=== PATIENT | female | born 1990 | race Caucasian/White ===

== ENCOUNTER 2018-07-18 17:10 | Outpatient (CLI) | payer MEDICAID, SELFPAY ==
[2018-07-18 17:16] VITALS: BMI 46.0
[2018-07-18] MEDS: 0.9% NaCl Peripheral Flush Adult/Peds IV ×2 (17:50→18:44)
[2018-07-18 18:07] LABS: 24 Hour Urine Protein 286.4 mg/24HR (<150 MG/24HR); 24HR. UA Prot. Total Volume 1600 mL; 24HR. Urine Creatinine 1.09 g/24 HR (0.70-1.90); Urine Protein (24 Hour) 17.9 mg/dL (<11.9)
[2018-07-18 18:15] LABS: Hematocrit 33.2 % (37-47); Hemoglobin 11.2 g/dl (12.0-15.0); Mean Corp Hgb Conc 33.7 g/gl (32-36); Mean Corpuscular Hgb 30.4 pg (27.0-32.0); Platelet Count 271 K/mm3 (150-450); RBC Distribution Width CV 13.2 % (11.6-14.6); RBC Distribution Width SD 42.3 fl (35.1-43.9); Red Blood Count 3.69 M/mm3 (4.2-5.4); Scan Indicated on CBC? Y/N NO; White Blood Count 11.4 K/mm3 (4.4-11.0)
[2018-07-18 18:17] LABS: International Normalized Ratio 0.9; Prothrombin Time (Protime)PT. 12.2 SECONDS (11.7-14.9)
[2018-07-18 18:18] LABS: Partial Thromboplast Time 31.4 Seconds (24.1-36.2)
[2018-07-18 18:23] LABS: AST(SGOT) 13 U/L (15-37); Alanine Aminotransfer ALT/SGPT 17 U/L (13-56); Creatinine, Serum 0.48 mg/dL (0.55-1.02); EST Glomerular Filtration Rate 165 mL/min (>60); Est Glom Filt Rate - Afr Amer 200 mL/min (>60); Estimated Creatinine Clearance 146.92 ml/min; Uric Acid 3.2 mg/dL (2.6-6.0)
[2018-07-18] MEDS: Lactated Ringers 500 ML 1000 ML IV (18:44)
[2018-07-18 19:04] LABS: Group B Strep DNA By PCR Negative (Negative); Internal Control PASS; Probe Check PASS; Specimen Processing Control PASS
[2018-07-18] MEDS: Acetaminophen 500 MG Tablet 1000 MG PO (20:07)
[2018-07-18] MEDS: Ondansetron 4 MG/2 ML Vial IV (20:09)
--- NOTE | 2018-07-19 08:20 | OB.TRI.NOTE ---
History of Present Illness Date of Service: 07/18/18 Was patient seen by the physician?: No Reason For Visit: R/O PIH Date of Service: 07/18/18 Final CROW: 08/18/18 Final CROW Source: US <20 weeks Gestational age: 35 Weeks and 5 Days History of Present Illness: 28yo @ 35+ wks- seen in office with mildly elevated BP and HARDING, sent for PRE E evaluation. Allergies No Known Allergies Allergy (Verified 07/18/18 17:20) NST - FHR Rate Baby A Baseline: 130 Variability:: Moderate Accelerations:: 15 x 15 Decelerations:: None NST Reactive:: Yes FHR Category:: Category I Uterine Activity:: uterine irritability - occasinal contraction Impression/Plan 28yo @ 35+ weeks - h/o GHTN, Normal BP and PRE E workup today. and maternal well being established 1) Dc home- labs reviewed- PRE E Labs normal 2) IVF given 3) tylenol for HARDING given 4) F/u in office this week
== END 2018-07-18 20:25 | disposition home or self-care (01) ==
LOC: WPOUT 17:15 → WP 17:15
PROVIDERS: Visit Provider Obstetrics & Gynecology
DX: O13.3 Gestational [pregnancy-induced] hypertension without significant proteinuria, third trimester (principal); Z3A.35 35 weeks gestation of pregnancy
CPT/HCPCS: 96361 ×2; 96374; 36415; 59025; 59050; 82565; 82570; 84156; 84450; 84460; 84550; 85027; 85610; 85730; 87081; 87653; 99218; J7120; A4216; G0378; J2405

== ENCOUNTER 2018-07-21 17:15 | Outpatient (CLI) | payer MEDICAID, SELFPAY ==
[2018-07-21 17:28] VITALS: BMI 47.2
[2018-07-21] MEDS: Mag Hydrox/Al Hydrox/Simeth 30 ML UDC PO (18:13)
[2018-07-21] MEDS: proMETHazine 25 MG Tablet 12.5 MG PO (18:13)
[2018-07-21] MEDS: Acetaminophen 500 MG Tablet 1000 MG PO (18:17)
[2018-07-21 18:23] LABS: Hematocrit 31.6 % (37-47); Hemoglobin 10.5 g/dl (12.0-15.0); Mean Corp Hgb Conc 33.2 g/gl (32-36); Mean Corpuscular Hgb 29.7 pg (27.0-32.0); Mean Corpuscular Volume 89.5 fL (81-99); Platelet Count 241 K/mm3 (150-450); RBC Distribution Width CV 13.3 % (11.6-14.6); Red Blood Count 3.53 M/mm3 (4.2-5.4); Scan Indicated on CBC? Y/N NO; White Blood Count 8.1 K/mm3 (4.4-11.0)
[2018-07-21 18:30] LABS: International Normalized Ratio 0.9; Prothrombin Time (Protime)PT. 12.2 SECONDS (11.7-14.9)
[2018-07-21 18:31] LABS: Partial Thromboplast Time 30.2 Seconds (24.1-36.2)
[2018-07-21 18:39] LABS: AST(SGOT) 13 U/L (15-37); Alanine Aminotransfer ALT/SGPT 16 U/L (13-56); Creatinine, Serum 0.64 mg/dL (0.55-1.02); EST Glomerular Filtration Rate 119 mL/min (>60); Est Glom Filt Rate - Afr Amer 144 mL/min (>60); Estimated Creatinine Clearance 110.19 ml/min; Uric Acid 3.5 mg/dL (2.6-6.0)
[2018-07-21 18:40] LABS: Protein, Urine (Random) 27.2 mg/dL (<11.9); Protein:Creat Ratio 229 mg/g CRE (0-200)
--- NOTE | 2018-07-21 18:47 | OB.TRI.NOTE ---
- Problem List (1) Gestational hypertension Status: Acute History of Present Illness Date of Service: 07/21/18 Was patient seen by the physician?: Yes Reason For Visit: R/O PRE ELAMPSIA Date of Service: 07/21/18 Final CROW: 08/18/18 Final CROW Source: US <20 weeks Gestational age: 36 Weeks and 0 Days History of Present Illness: Presented to L&D from office visit today with headache and not feeling well, seen by . BP elevated in 140's and sent for lab work. Upon arrival headache, no sctotoma or right upper quadrant abdominal pain. Allergies No Known Allergies Allergy (Verified 07/21/18 17:29) Review of Systems Constitutional: Reports: Fatigue. Denies: Chills, Fever, Weight Change Eyes: Denies: Blurred vision Cardiovascular: Denies: Chest Pain, Palpitations Respiratory: Denies: Cough, Shortness of breath at rest, Sputum production Gastrointestinal: Reports: Dyspepsia, Nausea. Denies: Abdominal Pain, Vomiting Neurological: Denies: Numbness, Tingling, Focal weakness Psychiatric: Denies: Anxiety, Depression, Homicidal Ideations, Suicidal Ideations Physical Exam General: Alert, Oriented x3, No apparent distress Cardiovascular: Regular rate, Regular Rhythm, No murmurs Lungs: Clear to auscultation, No rhonchi, No wheeze Abdomen: Soft, Non Tender, Gravid Extremities:: No edema Neurological: Deep Tendon Reflexes 2+/4 and Symmetrical. Negative for: Clonus Estimated gestational size: Appropriate for gestational size Presentation: Cephalic NST - FHR Rate Baby A Baseline: 145 Variability:: Moderate Accelerations:: 15 x 15 Decelerations:: None NST Reactive:: Yes FHR Category:: Category I Uterine Activity:: Irregular Impression/Plan A:Gestational HTN Headache P: 1) Evaluated on L&D unit. Will keep for observation. Tylenol, Phenergan, and Mylanta for discomfort. 1 Liter IV fluid. 2) Labs normal 3) 24 hour urine 4) Celestone x 2 5) notified of patient status, labs, BP and plan of care.
[2018-07-21] MEDS: Betamethasone/Betamethasone 30 MG/5 ML Vial 12 MG IM (20:12)
[2018-07-21] MEDS: Lactated Ringers 1,000 ML 999 ML IV (20:12)
[2018-07-21 21:18] LABS: Bacteria 0 SEEN /hpf (None Seen); Mucous, Urine 0 SEEN /hpf (<or=2+); Red Blood Cells-Urine 0 SEEN /hpf (0-5)
[2018-07-21 21:21] LABS: Color, Urine Yellow (Yellow); Glucose, Dipstick Normal (Normal); Ketone-Dipstick 5 mg/dl (Negative); Leukocyte Esterase-Dipstick 25 /ul (Negative); Nitrite-Dipstick Negative (Negative); Occult Blood-Urine Negative /ul (Negative); Protein-Dipstick 30 mg/dl (Negative); Urine Clarity Cloudy (Clear); Urine Urobilinogen 4 mg/dl (Normal)
[2018-07-21 21:27] LABS: Urine Bilirubin Dipstick 1 mg/dL (Negative)
[2018-07-21] MEDS: Ondansetron 4 MG/2 ML Vial IV (21:27)
[2018-07-21 21:29] LABS: Amorphous Sediment 3+ PHOS; Squamous Epithelial Cells - UA 0-5 SEEN /hpf (5-10); White Blood Cells 0-5 SEEN /hpf (0-5)
[2018-07-21] MEDS: 0.9% NaCl Peripheral Flush Adult/Peds IV (21:29)
[2018-07-22] MEDS: Mag Hydrox/Al Hydrox/Simeth 30 ML UDC PO (03:05)
[2018-07-22] MEDS: Acetaminophen 500 MG Tablet 1000 MG PO (06:30)
[2018-07-22] MEDS: 0.9% NaCl Peripheral Flush Adult/Peds IV (07:08)
[2018-07-22] MEDS: Ondansetron 4 MG/2 ML Vial IV (07:08)
[2018-07-22] MEDS: Famotidine 20 MG Tablet PO (07:46)
[2018-07-23 04:07] LABS: 24HR. Urine Creatinine 1.78 g/24 HR (0.70-1.90)
== END 2018-07-22 10:25 | disposition home or self-care (01) ==
LOC: WPOUT 17:21 → WP 17:22
PROVIDERS: Advanced Practice Midwife; Visit Provider Obstetrics & Gynecology
DX: O13.3 Gestational [pregnancy-induced] hypertension without significant proteinuria, third trimester (principal); Z3A.36 36 weeks gestation of pregnancy
CPT/HCPCS: 36415; 59025; 59050; 81001; 82565; 82570; 84156; 84450; 84460; 84550; 85027; 85610; 85730; 87086; 87088; 96372; 99218; J7120; A4216; G0378; J0702; J2405

== ENCOUNTER 2018-07-22 21:20 | Outpatient (CLI) | payer MEDICAID, SELFPAY ==
[2018-07-22 21:37] VITALS: BMI 47.2
[2018-07-22] MEDS: Betamethasone/Betamethasone 30 MG/5 ML Vial 12 MG IM (21:57)
--- NOTE | 2018-07-22 22:55 | NURSING ---
Pt here for second dose of celestone and 24 hr urine dropped off. Celestone given and pt ambulated off unit. Pt advised to keep OB appt for 07/24.
== END 2018-07-22 22:00 | disposition home or self-care (01) ==
LOC: WPOUT 21:24 → WP 21:25
PROVIDERS: Referring Provider Obstetrics & Gynecology; Visit Provider Obstetrics & Gynecology
DX: O36.8130 Decreased fetal movements, third trimester, not applicable or unspecified (principal); Z3A.36 36 weeks gestation of pregnancy
CPT/HCPCS: 96372; 99218; G0378; J0702

== ENCOUNTER 2018-07-23 07:20 | Outpatient (CLI) | payer MEDICAID, SELFPAY ==
[2018-07-23 07:59] VITALS: BMI 48.0
--- NOTE | 2018-07-23 12:38 | OB.TRI.NOTE ---
- Problem List (1) Decreased movement affecting , antepartum Status: Acute History of Present Illness Date of Service: 07/23/18 Was patient seen by the physician?: No Reason For Visit: DECREASE MOVEMENT Date of Service: 07/23/18 Final CROW: 08/18/18 Final CROW Source: US <20 weeks Gestational age: 36 Weeks and 2 Days History of Present Illness: Patient presents to triage reporting decreased movement this morning and felt concerned and did not feel she was able to wait until the [facility] opened. Patient denies vaginal discharge, vaginal bleeding or any other cramping/contractions. Allergies No Known Allergies Allergy (Verified 07/22/18 21:40) Review of Systems Constitutional: Denies: Chills, Fever, Weight Change HEENT: Denies: Head Aches, Sinus Congestion, Sinus Drainage Cardiovascular: Denies: Chest Pain, Palpitations Respiratory: Denies: Cough, Shortness of breath at rest, Sputum production Gastrointestinal: Denies: Abdominal Pain, Nausea, Vomiting Genitourinary: Denies: Dysuria Musculoskeletal: Denies: Joint Pain, Joint Tenderness Skin: Denies: Rash, Wounds Neurological: Denies: Numbness, Tingling, Focal weakness Psychiatric: Denies: Anxiety, Depression, Homicidal Ideations, Suicidal Ideations Hematologic/ Lymphatic: Denies: Easy Bruising, Easy Bleeding NST - FHR Rate Baby A Baseline: 130 Variability:: Moderate Accelerations:: 15 x 15 Decelerations:: None NST Reactive:: Yes, Appropriate for gestational age FHR Category:: Category I Uterine Activity:: No contractions noted on tocometer Impression/Plan A: 28 y/o @ 36+ weeks, Decreased Movement P: 1) NST Reactive - Category I FHT 2) Labor Precautions and [facility] teaching reviewed as part of discharge teaching 3) Patient has scheduled appt tomorrow with [facility] for follow-up Mili PASCAL
== END 2018-07-23 08:15 | disposition home or self-care (01) ==
LOC: WPOUT 07:54 → WP 07:54
PROVIDERS: Referring Provider Advanced Practice Midwife; Visit Provider Advanced Practice Midwife
DX: O36.8130 Decreased fetal movements, third trimester, not applicable or unspecified (principal); Z3A.36 36 weeks gestation of pregnancy
CPT/HCPCS: 59025; 59050; 99218; G0378

== ENCOUNTER 2018-07-28 07:45 | Inpatient (IN) | payer MEDICAID, SELFPAY ==
[2018-07-28 07:56] VITALS: BMI 46.9
[2018-07-28] MEDS: Lactated Ringers 1,000 ML 50 ML IV ×2 (08:10→21:45)
--- NOTE | 2018-07-28 08:27 | PCM.HP.OB ---
- Problem List (1) History of drug use Status: Chronic (2) History of depression Status: Chronic (3) Living in custodial Status: Chronic (4) Late care affecting in third trimester Status: Acute (5) Obesity affecting in third trimester Status: Acute History Date of Admission: 07/28/18 Final CROW: 08/18/18 Final CROW Source: US <20 weeks Gestational age: 37 Weeks and 0 Days History of this : This is a 28 year-old, G [4], P [2], at 37 weeks gestational age present for IOL for GHTN. Patient is dated [facility] and then had a late onset of initiation of care with scant care thereafter. Patient presents with FOB today. Allergies No Known Allergies Allergy (Verified 07/28/18 07:57) Home Medications: Home Medications Vits [Prenatabs FA] 1 tablet PO DAILY 07/23/18 Smoking Status: Current every day smoker Alcohol: None Substance Use Type: Methamphetamine - Hx of Meth Use - denies current use Number of Fetus(es): 1 Heart Tracing: FHT baseline 150 moderate variability, + accels, no decels noted TOCO Analysis: Uterine irritability noted on tocometer History Past Pregnancies: Past Pregnancies Delivery Date Name GA/Weeks Outcome Route Weight Infant Gender Labor Length Anesthesia Delivery Location Provider FOB Labs: O-, Abs Neg, H/H = 10.9/34.4 --> 12.2/36.2, Early 1 hour GTT = 131, Trich = Neg x2 , GC/CT = Neg/Neg x2, Urine Tox = Neg, Syphilis = Neg, Rubella = Immune, HepBsAg = Neg, HIV = Neg, 1 hour GTT = 120, Urine culture = Neg, GBS = Neg Expected Infant Delivery Method: Spontaneous Vaginal Describe any other labor & delivery plans:: Patient desires pain medication but is not interested in epidural Number of Visits: 6 Review of Systems Constitutional: Denies: Chills, Fever, Weight Change HEENT: Denies: Head Aches, Sinus Congestion, Sinus Drainage Cardiovascular: Denies: Chest Pain, Palpitations Respiratory: Denies: Cough, Shortness of breath at rest, Sputum production Gastrointestinal: Denies: Abdominal Pain, Nausea, Vomiting Genitourinary: Denies: Dysuria Musculoskeletal: Denies: Joint Pain, Joint Tenderness Skin: Denies: Rash, Wounds Neurological: Denies: Numbness, Tingling, Focal weakness Psychiatric: Reports: Anxiety. Denies: Depression, Homicidal Ideations, Suicidal Ideations Hematologic/ Lymphatic: Denies: Easy Bruising, Easy Bleeding Physical Exam Vitals: See nursing exam for vital signs - VSS, Afebrile General: Alert, Oriented x3, No apparent distress HEENT: Atraumatic, Normocephalic. Negative for: Thyromegaly, Lymphadenopathy Cardiovascular: Regular rate, Regular Rhythm Lungs: Clear to auscultation Abdomen: Bowel Sounds Present, Non Tender, Non-Distended, Gravid, Appropriate for Gestational Age Neurological: Deep Tendon Reflexes 2+/4 and Symmetrical, Neuro grossly intact RN PROGRESSIVE CARE: Normal external genitalia. Negative for: Vulvar lesions Estimated gestational size: Appropriate for gestational size Presentation: Cephalic Cervix Dilation (cm): 2 - midposition, moderately firm Station: -3 Effacement (%): 50 Assessment/Plan All Active Problems Gestational hypertension (Acute) Decreased movement affecting , antepartum (Acute) Late care affecting in third trimester (Acute) Obesity affecting in third trimester (Acute) This is a 28 year-old, G [4], P [2], at 37 weeks gestational age presenting for IOL for GHTN that was diagnosed at last visit in our office. 1) Dr. Wynn notified of admission and POC for IOL 2) Recommend sumnre catheter induction - risks/benefits and anticipatory teaching re: this method discussed. Patient declines this method. Patient reports fear and concern with sumner catheter placement. Patient consents to Cytotec 25mg PV q 6 hours to assist in cervical ripening. 3) Once cervix is ripe, will plan to start pitocin with plan for AROM once cervix is favorable. 4) All patient questions answered. Will continue to support patient PRN Mili PASCAL
--- NOTE | 2018-07-28 08:33 | HP.PCM_ITS ---
- Problem List (1) History of drug use Status: Chronic (2) History of depression Status: Chronic (3) Living in [place] [facility] Status: Chronic (4) Late care affecting in third trimester Status: Acute (5) Obesity affecting in third trimester Status: Acute History Date of Admission: 07/28/18 Final CROW: 08/18/18 Final CROW Source: US <20 weeks Gestational age: 37 Weeks and 0 Days History of this : This is a 28 year-old, G [4], P [2], at 37 weeks gestational age present for IOL for GHTN. Patient is dated by a [facility] and then had a late onset of initiation of care with scant care thereafter. Patient presents with FOB today. Allergies No Known Allergies Allergy (Verified 07/28/18 07:57) Home Medications: Home Medications Vits [Prenatabs FA] 1 tablet PO DAILY 07/23/18 Smoking Status: Current every day smoker Alcohol: None Substance Use Type: Methamphetamine - Hx of Meth Use - denies current use Number of Fetus(es): 1 Heart Tracing: FHT baseline 150 moderate variability, + accels, no decels noted TOCO Analysis: Uterine irritability noted on tocometer History Past Pregnancies: Past Pregnancies Delivery Date Name GA/Weeks Outcome Route Weight Infant Gender Labor Length Anesthesia Delivery Location Provider FOB Labs: O-, Abs Neg, H/H = 10.9/34.4 --> 12.2/36.2, Early 1 hour GTT = 131, Trich = Neg x2 , GC/CT = Neg/Neg x2, Urine Tox = Neg, Syphilis = Neg, Rubella = Immune, HepBsAg = Neg, HIV = Neg, 1 hour GTT = 120, Urine culture = Neg, GBS = Neg Expected Infant Delivery Method: Spontaneous Vaginal Describe any other labor & delivery plans:: Patient desires pain medication but is not interested in epidural Number of Visits: 6 Review of Systems Constitutional: Denies: Chills, Fever, Weight Change HEENT: Denies: Head Aches, Sinus Congestion, Sinus Drainage Cardiovascular: Denies: Chest Pain, Palpitations Respiratory: Denies: Cough, Shortness of breath at rest, Sputum production Gastrointestinal: Denies: Abdominal Pain, Nausea, Vomiting Genitourinary: Denies: Dysuria Musculoskeletal: Denies: Joint Pain, Joint Tenderness Skin: Denies: Rash, Wounds Neurological: Denies: Numbness, Tingling, Focal weakness Psychiatric: Reports: Anxiety. Denies: Depression, Homicidal Ideations, Suicidal Ideations Hematologic/ Lymphatic: Denies: Easy Bruising, Easy Bleeding Physical Exam Vitals: See nursing exam for vital signs - VSS, Afebrile General: Alert, Oriented x3, No apparent distress HEENT: Atraumatic, Normocephalic. Negative for: Thyromegaly, Lymphadenopathy Cardiovascular: Regular rate, Regular Rhythm Lungs: Clear to auscultation Abdomen: Bowel Sounds Present, Non Tender, Non-Distended, Gravid, Appropriate for Gestational Age Neurological: Deep Tendon Reflexes 2+/4 and Symmetrical, Neuro grossly intact [employer] LIBRARY DIRECTOR: Normal external genitalia. Negative for: Vulvar lesions Estimated gestational size: Appropriate for gestational size Presentation: Cephalic Cervix Dilation (cm): 2 - midposition, moderately firm Station: -3 Effacement (%): 50 Assessment/Plan All Active Problems Gestational hypertension (Acute) Decreased movement affecting , antepartum (Acute) Late care affecting in third trimester (Acute) Obesity affecting in third trimester (Acute) This is a 28 year-old, G [4], P [2], at 37 weeks gestational age presenting for IOL for GHTN that was diagnosed at last visit in our office. 1) Dr. Wynn notified of admission and POC for IOL 2) Recommend sumner catheter induction - risks/benefits and anticipatory teaching re: this method discussed. Patient declines this method. Patient reports fear and concern with sumner catheter placement. Patient consents to Cytotec 25mg PV q 6 hours to assist in cervical ripening. 3) Once cervix is ripe, will plan to start pitocin with plan for AROM once cervix is favorable. 4) All patient questions answered. Will continue to support patient PRN Mili PASCAL
[2018-07-28 08:36] LABS: Hematocrit 33.8 % (37-47); Hemoglobin 11.2 g/dl (12.0-15.0); Mean Corp Hgb Conc 33.1 g/gl (32-36); Mean Corpuscular Hgb 29.6 pg (27.0-32.0); Mean Corpuscular Volume 89.2 fL (81-99); Mean Platelet Vol. 9.9 fl (6.2-12.0); Platelet Count 254 K/mm3 (150-450); RBC Distribution Width CV 13.5 % (11.6-14.6); RBC Distribution Width SD 43.9 fl (35.1-43.9); Red Blood Count 3.79 M/mm3 (4.2-5.4); White Blood Count 9.9 K/mm3 (4.4-11.0)
[2018-07-28 08:37] LABS: Scan Indicated on CBC? Y/N NO
[2018-07-28] MEDS: miSOPROStol 25 MCG TABLET VAGINAL ×2 (09:21→13:06)
[2018-07-28] MEDS: Mag Hydrox/Al Hydrox/Simeth 30 ML UDC PO ×2 (09:22→17:18)
[2018-07-28 09:34] LABS: Amphetamine Urine VISTA NEGATIVE (<1000 ng/mL); Barbiturate Urine VISTA NEGATIVE (< 200 ng/mL); Benzodiazepine Urine VISTA NEGATIVE (< 200 ng/mL); Cocaine Urine VISTA NEGATIVE (< 300 ng/mL); Ecstacy Urine VISTA NEGATIVE (< 500 ng/mL); Methadone Urine VISTA NEGATIVE (< 300 ng/mL); PCP Urine VISTA NEGATIVE (< 25 ng/mL); THC Urine VISTA NEGATIVE (< 50 ng/mL); Vista UDS pH Range 6
--- NOTE | 2018-07-28 15:25 | CASEMGMT ---
Social Work Labor and Delivery Unit Noted social work consult due to maternal mental health and substance use issues. Chart reviewed. Also noted that MOB with late and limited and limited care with a visit at 10 weeks, 20 weeks, and then 31 weeks gestation. Noted that care became more consistent after 31 weeks. From chart review, it appears that patient may have been living in a skilled nursing for at least part of this , as well as possible non custody of at least one of MOB's older children. Plan: Will plan to see patient after delivery for assessment, support, and determination of resources needs. -JEANETTE Dumont, ECOLOGICAL TECHNICAL OFFICER
[2018-07-28] MEDS: Oxytocin 30 units/NS 500 ml 30 UNITS/500 ML IV.SOLN IV (17:24)
--- NOTE | 2018-07-28 19:08 | PCM.PN.OB ---
Patient Problems: Active and Suspected Problems Late care affecting in third trimester (Acute) Obesity affecting in third trimester (Acute) Subjective: Patient sitting up on birthing ball, rocking back and forth at this time. Patient reports increased cramping and sensations of mild rectal and pelvic pressure at this time. Patient reports she is still tolerating labor contractions well. Objective: FHT baseline 145 moderate variability, no decels Ctx Irregular ctx q 2-10 minutes, mildly palpable SVE = 2/70/-3 per RN exam at ~1700 - Physical Exam Weight: 264 lb 15.93 oz Body Mass Index (BMI) 46.9 Intake and Output for Last 24 Hours 07/26/18 07/27/18 07/28/18 23:59 23:59 23:59 Intake Total 700 / 700 Output Total 800 / 800 Balance -100 / -100 Laboratory Tests Past 24 Hrs 07/28/18 07/28/18 07/28/18 08:10 08:10 09:05 WBC 9.9 RBC 3.79 L Hgb 11.2 L Hct 33.8 L MCV 89.2 MCH 29.6 MCHC 33.1 RDW 13.5 RDW Differential 43.9 Plt Count 254 MPV 9.9 Urine Opiates Screen NEGATIVE Urine Methadone Screen NEGATIVE Ur Barbiturates Screen NEGATIVE Ur Phencyclidine Scrn NEGATIVE Ur Amphetamines Screen NEGATIVE U Methamphetamin-MDMA NEGATIVE U Benzodiazepines Scrn NEGATIVE Urine Cocaine Screen NEGATIVE U Cannabinoids Screen NEGATIVE Ur Drug Screen Comment Blood Type O NEGATIVE Antibody Screen NEGATIVE Medical Necessity - Tobacco Use Smoking Status: Current every day smoker Assessment/Plan All Active Problems Gestational hypertension (Acute) Decreased movement affecting , antepartum (Acute) Late care affecting in third trimester (Acute) Obesity affecting in third trimester (Acute) A: 28 y/o @ 37+ weeks, IOL for GHTN, Category I FHT P: 1) Continue pitocin titration at this time per protocol 2) Anticipate SVE with AROM if cervix favorable with next exam 3) Encourage position changes and PO hydration Mili Sethi APRN-JOSÉ MIGUEL
--- NOTE | 2018-07-28 19:48 | PCM.PN.BLA ---
Progress Note Addendum: Patient is ready for SVE at this time - SVE done and patient found to be 4/80/-2 with BBOW. AROM for clear fluid and patient internalized with FSE and IUPC. Patient tolerated procedure well. IV Pitocin continues to infuse for labor augmentation. Will continue to monitor patient closely. Anticipate . Mili PASCAL
[2018-07-28] MEDS: Ondansetron 4 MG/2 ML Vial IV (20:14)
--- NOTE | 2018-07-28 22:27 | PN.OBGYN_ITS ---
Patient Problems: Active and Suspected Problems Late care affecting in third trimester (Acute) Obesity affecting in third trimester (Acute) Subjective: Page received from nursing staff, patient's contractions are intensifying and becoming stronger. Nursing staff has had to keep decreasing IV pitocin me dication as contractions have become closer and stronger. Objective: FHT baseline 140, moderate variability, no decels CTX q 1-3 minutes, palpate moderately strong, MVUs = 150-200 SVE - 5/90/-2 to -3, head asynclitic - Physical Exam General: Alert, Oriented x3, Cooperative HEENT: Atraumatic, Normocephalic Neck: Supple Lungs: Normal air movement Cardiovascular: Regular rate, No murmurs Abdomen: Soft, Non Tender Extremities: No edema, Capillary Refill Less than 3 Seconds Skin: No rashes, No breakdown Musculoskeletal: No Tenderness to Palpation of Joints or Extremities Neurological: Cranial nerves II-XII grossly intact Psych/Mental Status: Normal Affect, Appropriate Weight: 264 lb 15.93 oz Body Mass Index (BMI) 46.9 Intake and Output for Last 24 Hours 07/26/18 07/27/18 07/28/18 23:59 23:59 23:59 Intake Total 700 / 700 Output Total 800 / 800 Balance -100 / -100 Laboratory Tests Past 24 Hrs 07/28/18 07/28/18 07/28/18 08:10 08:10 09:05 WBC 9.9 RBC 3.79 L Hgb 11.2 L Hct 33.8 L MCV 89.2 MCH 29.6 MCHC 33.1 RDW 13.5 RDW Differential 43.9 Plt Count 254 MPV 9.9 Urine Opiates Screen NEGATIVE Urine Methadone Screen NEGATIVE Ur Barbiturates Screen NEGATIVE Ur Phencyclidine Scrn NEGATIVE Ur Amphetamines Screen NEGATIVE U Methamphetamin-MDMA NEGATIVE U Benzodiazepines Scrn NEGATIVE Urine Cocaine Screen NEGATIVE U Cannabinoids Screen NEGATIVE Ur Drug Screen Comment Blood Type O NEGATIVE Antibody Screen NEGATIVE Medical Necessity - Tobacco Use Smoking Status: Current every day smoker Assessment/Plan All Active Problems Gestational hypertension (Acute) Decreased movement affecting , antepartum (Acute) Late care affecting in third trimester (Acute) Obesity affecting in third trimester (Acute) IUP @ 37 weeks with IOL for GHTN, Category I FHT, Pitocin Labor Augmentation P: 1) Encourage position changes, especially use of lunges, side-lying and H+K to help encourage rotation and descent of fetus 2) Anticipate Mili PASCAL
[2018-07-28] MEDS: Oxytocin 30 units/NS 500 ml 30 UNITS/500 ML IV.SOLN 334 UNITS IV (23:45)
[2018-07-29] MEDS: Oxytocin 30 units/NS 500 ml 30 UNITS/500 ML IV.SOLN 167 UNITS IV (00:15)
--- NOTE | 2018-07-29 00:28 | OP.PCM_ITS ---
- Problem List (1) History of drug use Status: Chronic (2) History of depression Status: Chronic (3) Living in skilled nursing Status: Chronic (4) Late care affecting in third trimester Status: Resolved (5) Obesity affecting in third trimester Status: Acute Vaginal Delivery Maternal Presentation: Active Labor Method of Induction: Pitocin, Amniotomy, Cytotec Medical Reason for Induction: Gestational Hypertension Amniotic Membrane Rupture Type: Artificial Amniotic Fluid Description: Clear Final CROW: 08/18/18 Gestational age: 37 Weeks and 1 Days Date of Procedure: 07/29/18 Pre-Operative Diagnosis: IOL @ 37 weeks for GHTN Post-Operative Diagnosis: of Viable Baby Surgery/ Procedure Performed: Spontaneous Vaginal Delivery Type of Anesthesia: None Description of Procedure: Patient was standing up in shower and reported urge to push and bear down. Patient guided back to bed and found to be C/C/+2. Patient pushed well with urge and delivered viable girl baby over intact perineum at 2339. head delivered OA and restituted to SONA and then LOT. Anterior shoulder delivered without difficulty followed by posterior should and body. with spontaneous cry and respirations, dried and stimulated and placed on maternal abdomen. Apgars 9 and 9, infant weight pending. Umbilical cord clamped and cut once it stopped pulsing by FOB. Placenta then delivered spontaneously by Moreno mechanism. Placental triage WNL and with 3VC. FF midline @ umbilicus. EBL = 200cc. Upon inspection of vaginal vault, no lacerations noted. No repair done. Sponge count correct. Vaginal sweep negative. Baby to breast, bonding initiated. Mili Sethi APRN-JOSÉ MIGUEL Presentation: Vertex, SONA Placental Delivery Description: Spontaneous Placenta Disposition: [facility] Cord Vessel Description: 3 Vessels Cord Entanglement: None Estimated Blood Loss: 200 A gender: Female (1 minute): 9 (5 minute): 9 Episiotomy Description: None Laceration: None Medications given after delivery: IV Pitocin Complications: None
--- NOTE | 2018-07-29 00:35 | DCINST_ITS ---
Discharge Diet: No Restrictions Discharge Activity: Return to Normal Activity, May not drive while taking narcotic pain medications., May Shower May resume sexual activity in: 4-6 weeks Additional Activity Instructions:: Nothing in the vagina for 4-6 weeks. You may return to work/school in 6 weeks. Call your doctor if your incision/area has: Continuous Slow Oozing, Sudden Increased Bleeding, Increased Pain/ Swelling, Increased Redness, Foul Smelling Discharge Call your doctor if you observe: Fever of 101 or Higher, Inability to urinate, Inability to have a bowel movement, Using more than one pad per hour Additional Instructions: If you experience any of the following, contact your healthcare provider. * Bleeding that soaks a pad every hour for 2 hours * Fever 100.4 or higher * Unrelieved incision or abdominal pain * Swelling, redness, discharge or bleeding from your incision or episiotomy site * Your incision begins to separate * Problems urinating (including inability to urinate or burning while urinating). * Visual changes * Severe headache * Flu-like symptoms * Pain or redness in one of both of your breasts * Pain, warmth, tenderness or swelling in your legs, especially the calf area * Frequent nausea and vomiting * Symptoms of depression or anxiety If you experience any of the following, call 911 or go to the nearest Emergency Room. * Chest pain * Problems breathing * Seizure activity * Partial or complete paralysis of a body part, slurred speech, weakness or drooping of the face, or a sudden inability to walk or hold your balance Allergies/Adverse Reactions: Allergies No Known Allergies Allergy (Verified 07/28/18 07:57) Medications to take at Discharge Vits [Prenatabs FA ] 1 tablet PO DAILY 07/23/18 Please Follow Up With: Mili Sethi CNM When: Call to make an appointment with your doctor in 2 weeks and 6 weeks. If you had elevated Blood Pressure or 4th degree laceration you will need to be seen in 2 weeks. Primary Care Physician: Care Physician,No Primary [Primary Care Provider] - Test Results: Test results from this visit will be discussed in further detail at your follow- up appointment, if applicable. Proposed Discharge Date: 07/30/18
[2018-07-29] MEDS: Ibuprofen 600 MG Tablet PO ×3 (01:06→13:23)
[2018-07-29 04:04] VITALS: BP 140/66; PULSE 105; RESP 18; TEMP 36.6; O2SAT 96
--- NOTE | 2018-07-29 06:16 | PCM.PN.OB ---
Patient Problems: Active and Suspected Problems Obesity affecting in third trimester (Acute) Subjective: Patient standing at bedside reporting no issues. Patient denies any heavy bleeding, denies pelvic pain or issues with ambulation or urination. Objective: Nipples without cracks or blisters, no erythema noted Abdomen NT x 4 quadrants, FF midline @ umbilicus Negative edema in LE< no calf tenderness to palpation Small rubra lochia - Physical Exam General: Alert, Oriented x3, Cooperative HEENT: Atraumatic, Normocephalic Neck: Supple Lungs: Normal air movement Cardiovascular: Regular rate, No murmurs Abdomen: Soft, Non Tender Extremities: No edema, Capillary Refill Less than 3 Seconds Skin: No rashes, No breakdown Musculoskeletal: No Tenderness to Palpation of Joints or Extremities Neurological: Cranial nerves II-XII grossly intact Psych/Mental Status: Normal Affect, Appropriate Vital Signs Temp Pulse Resp BP Pulse Ox 97.9 F 105 H 18 140/66 H 96 07/29/18 04:04 07/29/18 04:04 07/29/18 04:04 07/29/18 04:04 07/29/18 04:04 Oxygen Delivery Method Room Air Weight: 264 lb 15.93 oz Body Mass Index (BMI) 46.9 Intake and Output for Last 24 Hours 07/27/18 07/28/18 07/29/18 23:59 23:59 23:59 Intake Total 700 / 700 Output Total 800 / 800 Balance -100 / -100 Laboratory Tests Past 24 Hrs 07/28/18 07/28/18 07/28/18 08:10 08:10 09:05 WBC 9.9 RBC 3.79 L Hgb 11.2 L Hct 33.8 L MCV 89.2 MCH 29.6 MCHC 33.1 RDW 13.5 RDW Differential 43.9 Plt Count 254 MPV 9.9 Urine Opiates Screen NEGATIVE Urine Methadone Screen NEGATIVE Ur Barbiturates Screen NEGATIVE Ur Phencyclidine Scrn NEGATIVE Ur Amphetamines Screen NEGATIVE U Methamphetamin-MDMA NEGATIVE U Benzodiazepines Scrn NEGATIVE Urine Cocaine Screen NEGATIVE U Cannabinoids Screen NEGATIVE Ur Drug Screen Comment Blood Type O NEGATIVE Antibody Screen NEGATIVE Screen Baby's Blood Type Baby's JOSE RAFAEL 07/29/18 04:15 WBC RBC Hgb Hct MCV MCH MCHC RDW RDW Differential Plt Count MPV Urine Opiates Screen Urine Methadone Screen Ur Barbiturates Screen Ur Phencyclidine Scrn Ur Amphetamines Screen U Methamphetamin-MDMA U Benzodiazepines Scrn Urine Cocaine Screen U Cannabinoids Screen Ur Drug Screen Comment Blood Type Antibody Screen Screen NEGATIVE Baby's Blood Type O POSITIVE Baby's JOSE RAFAEL NEGATIVE Medical Necessity - Tobacco Use Smoking Status: Current every day smoker Assessment/Plan All Active Problems Gestational hypertension (Acute) Decreased movement affecting , antepartum (Acute) Late care affecting in third trimester (Resolved) Obesity affecting in third trimester (Acute) A: 28 y/o , PPD #1 s/p , Normal Course P: 1) Continue PP orders 2) Lactaction Consultation Mili PASCAL
[2018-07-29 08:00] VITALS: BP 132/66; PULSE 103; RESP 16; TEMP 36.7; O2SAT 97
[2018-07-29 13:25] VITALS: BP 125/79; PULSE 87; RESP 18; TEMP 36.6; O2SAT 97
[2018-07-29 16:00] VITALS: BP 136/84; PULSE 102; RESP 18; TEMP 36.3; O2SAT 97
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
[2018-07-29] MEDS: Acetaminophen 500 MG Tablet 1000 MG PO (18:02)
[2018-07-29 20:30] VITALS: BP 99/64; PULSE 89; RESP 16; TEMP 36.8
[2018-07-30 04:02] VITALS: BP 137/82; PULSE 94; RESP 16; TEMP 36.8
[2018-07-30 10:20] VITALS: BP 139/75; PULSE 105; RESP 18; TEMP 36.4
--- NOTE | 2018-07-30 12:25 | CASEMGMT ---
Social Work Labor and Delivery Unit Reason for visit: review plan for counseling, pediatric follow up, safe plan of care for baby in relation to drug usage, and how MOB is doing right now. Summary: Chart reviewed. Report received from nursing staff. Noted nursing documentation overnight that patient/mother of baby (MOB) refused to let nursing check baby out, nor check MOB, then later the MOB apologized to staff for behaviors. Baby has now been sent to the [facility] for issues related to low blood sugars and jitteriness. Met with MOB in room. MOB reports was irritable with staff last night as MOB had not slept well, was very tired, and had been upset from earlier in the evening when MOB?s mother showed up at about 9pm to visit. MOB reports her mother was to visit earlier in the day, and MOB was irritated by the lateness of the visit. MOB reports then got more upset as when the baby fussed for a moment, MOB?s mom picked the baby up despite MOB telling MOB?s mom not to. MOB reports the baby started crying then and disrupted both MOB and baby from sleeping. MOB report then got irritable with staff when both were trying to rest, and then became stressed out when knew baby had to go to SCN. MOB reports did later apologize to the staff and apologized to her own mother for MOB?s reactions last evening. MOB uncertain about which doctor will have pediatric follow up for baby, but is planning to go to a family doctor?s office. This show card writer explored with MOB behavioral health issues including counseling follow up: Addressed whether MOB has any other mental health diagnosis other than depression or anxiety, such as bipolar disorder. MOB reports that yes, was diagnosed with Bipolar disorder at the age of 20. MOB reports to have mood swings at times. Addressed medication management with MOB. MOB reports can?t remember any medicine, other than Trazadone, helping MOB with mood or anxiety. MOB reported that about a month ago was a [facility] and received a dose of ?anxiety sleeping? medicine that seemed to help MOB for about 2 days after. Addressed with MOB that may be good to find out what that medicine is, as some medicines can impact baby and that it is good for staff to know what baby has been exposed to. Addressed with MOB about other substance use and importance of not breast feeding should MOB go back to using drugs. MOB states no intent to use drugs in the future and reports to understand that should not use drugs and breast feed. MOB reports was hesitant to smoke cigarettes due to breast feeding, but once found out this was okay [id number] to go out and smoke last night (about [id number] in the morning). MOB reports had initially quit smoking during this , then at about 7 months along started again up to a half a pack a day. MOB reports by the time that MOB delivered was up to one pack a day. MOB reports agreement to have social work assist with getting follow up counseling set up for in a week or two. Addressed with MOB that need to talk with MOB about safe plan of care for baby, should MOB for any reason use drugs again in the future. Referenced that as report needs to be made to children services related to reports of substance exposed infant, this show card writer needs to also address safe plan of care. MOB took some time to think and responded that would get a multiple drill operator to watch baby should MOB use drugs again. MOB reports that does not really trust others to watch the baby though. MOB reports intent currently to remain drug free. Assessment: MOB pleasant, cooperative and talkative during social work visit. MOB willing to have referrals made. MOB reports permission for social services manager to arrange follow up with Wilmer Dean at [facility]. MOB also agreeable with social services manager requesting records from [facility] to see what medicine MOB received while in the ED. MOB willing to share feelings regarding stress of baby going to SCN. Alleged father of baby (FOB) sleeping on couch during social work visit. No movement or seeming to be disturbed at all by conversation going on around the FOB. MOB reports that FOB is stressed about baby being in the SCN, so MOB has contacted FOB?s mother for support in encouraging FOB to go into the SCN to see the baby and continue to help. MOB continues to voice interest in having community resource information. MOB voicing love for baby, and that MOB misses the baby while in the SCN. Interventions: MOB signed releases of information to [facility] and to [facility]. Confirmed Fax at [facility] records department (fax [phone]) and faxed request for records. This show card writer had confirmed with technical instructor course developer that may be a good idea to have documented what MOB was prescribed during this . Confirmed Debbie Gomeso?s fax of [phone] and faxed release of information. Verified MOB?s last appointment with counselor Wilmer as 07-10-18 and then arranged follow up for MOB for Saturday08-08-18 at 1400. This show card writer provided MOB with [place] Depression screen. Score is 8 of 30, with 10 or higher being indicative of possible depression present. MOB reports to feel managing okay right now, just feeling a bit stressed with having baby in the SCN. -JEANETTE Dumont, HISTORICAL SOCIETY DIRECTOR
--- NOTE | 2018-07-30 12:37 | CASEMGMT ---
Social Work Labor and Delivery Unit Summary: Called [facility] ([facility]) at [phone]. Spoke with Vinita in the intake department. Referral given due to reports of substance exposed , with reports of last use in the first trimester. MOB informed this literary writer that had gone high to the care center when seeking confirmation of . Let Vinita know that this is last reported use by the MOB. Updated to negative drug screens done, and negative results; pending results for baby. Brief maternal and histories provided. Included risk factors related to maternal mental health, housing instability, and non-custody of older children with children services reportedly just closing a case during this . Let Vinita know of baby?s current location and that unsure of discharge dates. Anticipating case to be screened in for investigation with children services worker contacting MOB at some point soon. Vinita asks to be update if there are any significant changes with baby, or other concerns arise. Note, this literary writer did educate mother of baby (MOB) when meeting with MOB earlier this date, that this literary writer provides the social work to the [facility]. Educated for need to do a social history, and that this literary writer will be using the information gathered with MOB on 07-29-18. MOB voices agreement to go ahead and include the information gathered upon initial meeting. Plan: Continue to follow and assist this family. Will be follow up with MOB for resources and support. -MAXWELL Dumont, BATTERY BUILDER
[2018-07-30] MEDS: Acetaminophen 500 MG Tablet 1000 MG PO (13:41)
[2018-07-30 14:00] VITALS: BP 135/81; PULSE 100; RESP 18; TEMP 36.1
[2018-07-30] MEDS: Etonogestrel 68 MG IMPLANT SQ (16:59)
--- NOTE | 2018-07-30 17:13 | PCM.PN.OB ---
Patient Problems: Active and Suspected Problems Obesity affecting in third trimester (Acute) Nexplanon insertion (Acute) Subjective: Doing well per patient and nursing staff. Voiding and passing flatus. Ambulating and taking PO without difficulty. Denies headache, visual disturbances, chest pain, SOB, leg pain, abdominal pain, increased vaginal bleeding or clots. Baby in special care nursery due to hypoglycemia. Objective: Desires Nexplanon. Reviewed risks, benefits, MOA, bleeding profile, and removal in 3 years. Consent form reviewed and signed. Left handed, requesting placement in right arm. Right upper arm cleansed with betadine. 1% Lidocaine instilled into right upper arm. Nexplanon inserted without difficulty. Steri strips applied. Pressure dressing applied. Reviewed with patient to remove pressure dressing in 24 hours. - Physical Exam General: Alert, Oriented x3, Cooperative, - - Earlier today anxious due to baby feeding schedule and declined Nexplanon at 1145am. Doing better now, returned from [place] ([place] hospital property[facility] HEENT: Atraumatic, Normocephalic Neck: Trachea Midline Lungs: Clear to auscultation, Normal air movement, No rhonchi, No wheeze Cardiovascular: Regular rate, Regular Rhythm, No murmurs Abdomen: Bowel Sounds Present, Soft, - - Fundus firm 2 below U Extremities: No edema Neurological: Deep Tendon Reflexes 2+/4 and Symmetrical, - - clonus negative. Fco's negative. Psych/Mental Status: Normal Affect, Appropriate Vital Signs Temp Pulse Resp BP Pulse Ox 97.6 F L 105 H 18 139/75 H 97 07/30/18 10:20 07/30/18 10:20 07/30/18 10:20 07/30/18 10:20 07/29/18 16:00 Oxygen Delivery Method Room Air Weight: 264 lb 15.93 oz Body Mass Index (BMI) 46.9 Intake and Output for Last 24 Hours 07/28/18 07/29/18 07/30/18 23:59 23:59 23:59 Intake Total 700 / 700 2100 / 2100 Output Total 800 / 800 700 / 700 Balance -100 / -100 1400 / 1400 Medical Necessity - Tobacco Use Smoking Status: Current every day smoker Assessment/Plan All Active Problems Gestational hypertension (Acute) Decreased movement affecting , antepartum (Acute) Late care affecting in third trimester (Resolved) Obesity affecting in third trimester (Acute) Nexplanon insertion (Acute) A: PPD #2 Gestational HTN Nexplanon insertion P: 1) Routine PP orders. BP mildly elevated, recheck prior to hotel status and call with BP check. 2) Discharge instructions given. Follow up in 2-5 days for BP check 3) Follow up in 2 weeks and 6 weeks for PP visit.
--- NOTE | 2018-07-30 18:44 | NURSING ---
late entry- 1630- in patients room but patient not there. signed out at desk. Ramin on floor for discharge assessment and nexplanon placement. Attempted calling patient on number in chart and number SCN has. unable to get in touch with patient.
--- NOTE | 2018-07-30 18:48 | NURSING ---
1700- returned to floor.
[2018-07-30 20:35] VITALS: BP 133/83; PULSE 100; RESP 20; TEMP 36.7; O2SAT 97
[2018-07-30 20:45] VITALS: BP 133/83; PULSE 100; RESP 20; TEMP 36.7; O2SAT 97
--- NOTE | 2018-07-30 22:36 | NURSING ---
2044-discharged to courtesy room status. reviewed rules regarding the stay. questions answered.
--- NOTE | 2018-07-30 22:39 | NURSING ---
2044-called jak antony cnm and made aware of pt blood pressure, ok with discharge.
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
== END 2018-07-30 20:45 | disposition home or self-care (01) | DRG 372 ==
PROVIDERS: Admitting Provider Obstetrics & Gynecology; Referring Provider Obstetrics & Gynecology; Visit Provider Obstetrics & Gynecology
DX: O13.4 Gestational [pregnancy-induced] hypertension without significant proteinuria, complicating childbirth (principal); O99.214 Obesity complicating childbirth; E66.9 Obesity, unspecified; Z37.0 Single live birth; Z59.0 Homelessness; F17.200 Nicotine dependence, unspecified, uncomplicated; O99.334 Smoking (tobacco) complicating childbirth; Z3A.37 37 weeks gestation of pregnancy
CPT/HCPCS: 59025; 59050; 80307; 85027; 85461; 86850; 86900; 90384; 99218; J7120; G0378; J2405; J2790

== ENCOUNTER 2019-09-15 21:07 | Emergency (ER) | payer MEDICAID, SELFPAY ==
[2019-09-15 21:09] VITALS: BP 151/100; PULSE 129; RESP 18; TEMP 36.4; O2SAT 100; BMI 43.9
--- NOTE | 2019-09-15 21:12 | RAD_ITS ---
STUDY: X-RAY - RIGHT FOOT CLINICAL: Female, 29 years old. Pain TECHNIQUE: 3 view(s) of the foot. COMPARISON: None. FINDINGS: There is no evidence of fracture or dislocation. There are no significant degenerative changes. There are no radiodense foreign bodies. RAD/Foot min 3 Views IMPRESSION: No fracture or dislocation. Electronically Signed: Cornelius Person, at 21:36 EST Tel , Service support ,
--- NOTE | 2019-09-15 22:00 | ED.RN ---
PT CALLED TO TAKE BACK TO ED ROOM. NO RESPONSE.
--- NOTE | 2019-09-15 22:03 | ED.RN ---
PT LEFT WITHOUT BEING SEEN.
== END 2019-09-15 22:03 | disposition left against medical advice (07) ==
LOC: ED 22:05
PROVIDERS: Emergency Provider Emergency Medicine
DX: M79.671 Pain in right foot (principal)
CPT/HCPCS: 73630

== ENCOUNTER 2019-09-16 17:17 | Emergency (ER) | payer MEDICAID, SELFPAY ==
[2019-09-15 21:09] VITALS: BMI 43.9
[2019-09-16 17:18] VITALS: BP 147/95; PULSE 133; RESP 15; TEMP 36.4; O2SAT 98; BMI 46.0
[2019-09-16 17:53] LABS: Color, Urine Yellow (Yellow); Glucose, Dipstick Normal (Normal); Ketone-Dipstick Negative (Negative); Leukocyte Esterase-Dipstick 25 /ul (Negative); Nitrite-Dipstick Negative (Negative); Occult Blood-Urine Negative /ul (Negative); Protein-Dipstick Negative (Negative); Urine Bilirubin Dipstick Negative (Negative); Urine Clarity Sl. Cloudy (Clear); Urine Urobilinogen 1 mg/dl (Normal)
[2019-09-16 17:54] LABS: Internal QC Validated? YES +Cl - CLEAR BKGD; Pregnancy, Urine Negative Negative
[2019-09-16 18:00] LABS: Bacteria 1+ /hpf (None Seen); Mucous, Urine 3+ /hpf (<or=2+); Red Blood Cells-Urine 0-5 SEEN /hpf (0-5); Squamous Epithelial Cells - UA 10-25 SEEN /hpf (5-10); White Blood Cells 0-5 SEEN /hpf (0-5)
[2019-09-16] MEDS: Azithromycin 250 MG Tablet 1000 MG PO (18:19)
[2019-09-16] MEDS: metroNIDAZOLE 500 MG Tablet 2000 MG PO (18:19)
[2019-09-16] MEDS: Ceftriaxone 500 MG Vial 250 MG IM (18:29)
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
--- NOTE | 2019-09-16 19:11 | ED.DCSUM_ITS ---
- ER Visit Summary Date of Service: 09/16/19 Chief Complaint: STD exposure History of Present Illness: The patient is a 29 F with an STD exposure. Her boyfriend has symptoms of an STD. She is having some lower abdominal pain but denies discharge or bleeding. She also injured her foot recently and was seen yesterday. She had an x-ray of her foot performed, but she left the ED before the results. Physical Examination: Unremarkable. She has lateral foot tenderness which is diffuse and nonspecific. Test Results: Urinalysis unremarkable. hCG negative. Gonorrhea and Chlamydia testing is pending. Emergency Department Course and Treatment: Patient's x-rays from yesterday were unremarkable. Rest, ice, elevate. [id number] remedies for pain. Patient will be treated for STD coverage with ceftriaxone, azithromycin, and Flagyl. There is nothing to suggest PID. No indication for imaging. Patient was given precautions and outpatient follow-up. sheetmetal worker also saw the patient as she is homeless to try to get her some primary care follow-up and other resources. Treatment Plan: As above Disposition: Discharge Impression: 1. Right foot pain 2. STD exposure This note was generated with LogLogic dictation software. It may contain incorrect words, spelling, and punctuation that were not noted in review of the chart prior to signing ED Disposition - Plan for ED Patient: Referrals: Care Physician,No Primary [Primary Care Provider] -
--- NOTE | 2019-09-16 19:13 | ED.DEP ---
ED Disposition - Plan for ED Patient: Instructions: What Are Sexually Transmitted Diseases (STDs)?, Sprain Foot Prescriptions: Naproxen [Naprosyn] 500 mg PO BID PRN #20 tab Prescription Printed Referrals: Dary Black [NON-STAFF] -
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
[2019-09-16 20:03] LABS: Chlamydia Trachomatis by PCR Negative (Negative); Neisserai gonorrhoeae by PCR Positive (Negative); Probe Check PASS
--- NOTE | 2019-09-16 20:15 | ED.RN ---
attempted to contact patient at this time with test results. Boyfriend answered phone and patient was not there. Boyfriend wanted test results and advised was no legally allowed to speak to him at this time unless I speak to patient before. He is to have patient call back to hospital for results.
--- NOTE | 2019-09-16 20:19 | ED.RN ---
lab called with positive gonorrhoeae results. Spoke with Dr. Loredo patient has been covered with medications. Patient needs to be made aware of test results.
--- NOTE | 2019-09-17 01:46 | ED.RN ---
patient called back and notified of test results.
== END 2019-09-16 19:29 | disposition home or self-care (01) ==
PROVIDERS: Emergency Provider Emergency Medicine
DX: M79.671 Pain in right foot (principal); Z20.2 Contact with and (suspected) exposure to infections with a predominantly sexual mode of transmission; R10.30 Lower abdominal pain, unspecified; S99.921A Unspecified injury of right foot, initial encounter; X58.XXXA Exposure to other specified factors, initial encounter; Y93.9 Activity, unspecified; Y92.9 Unspecified place or not applicable; Z72.0 Tobacco use
CPT/HCPCS: 81001; 81025; 87491; 87591; 96372; 99284

== ENCOUNTER 2025-07-29 19:12 | Emergency (ER) | payer MEDICAID, SELFPAY ==
[2025-07-29 19:13] VITALS: BP 164/101; PULSE 102; RESP 18; TEMP 36.9; O2SAT 98; BMI 49.6
--- NOTE | 2025-07-29 19:47 | EKG12_ITS ---
Test Reason : SUBSTANCE ABUSE Blood Pressure : */* mmHG Vent. Rate : 86 BPM Atrial Rate : 86 BPM P-R Int : 168 ms QRS Dur : 78 ms QT Int : 360 ms P-R-T Axes : 66 50 30 degrees QTcB Int : 430 ms Normal sinus rhythm Normal ECG Confirmed by PAMELA DUVALL, MILLICENT ([id number]), newspaper or periodical editor DESTINEY BLACK ([id number]) on 08/02/2025 6:19:23 AM Referred By: Confirmed By: MILLICENT SANTIAGO MD
--- NOTE | 2025-07-29 20:08 | EX.ED.SAOD ---
HPI History of Present Illness Chief Complaint: Substance Abuse Detail of Chief Complaint: Detox from crack cocaine and methamphetamine Informant: patient Onset/Context/Timing Onset: Month(s) (Patient states she has been using for approximately 8 months) Context: Sudden Onset Timing: Continuous Quality: Smoked crack prior to presentation. Current Severity: Moderate Maximum Severity: Severe Worsened by: Crack cocaine use Relieved by: Nothing Associated Symptoms Associated Symptoms: Positive for tremor, palpatations, change in mental status (Feels things are racing and out of body experience) and unknown; Negative for vomiting*, diarrhea*, fever*, rash*, seizure, trauma, sex for drugs*, suicidal ideation or homicidal ideation Narrative Narrative: Patient is a 35-year-old female. She has history of drug use and depression. She states she is sexually active. She has not had a menses in greater than 2 months. She states her IUD was post be removed several years ago. She complains of headache, palpitations,, things racing, shortness of breath and feeling anxious. Headache did not start abruptly. It is primarily bifrontal. There is no complaint of double vision, blurred vision or loss of vision. Denies ringing ears decreased hearing. She has trouble with speech or swallowing. She She does endorse palpitations. Denies chest pressure, tightness, heaviness or pleuritic pain. She denies any type of chest pain. She does report mild shortness of breath. She denies cough, sputum production or wheezing. She feels that her abdomen is bloated and full. She is concerned he may be . She denies dysuria, frequency, urgency or hematuria. She denies paresthesia, anesthesia or weakness in her upper or lower extremity. She denies problems with balance. Patient states her mother drove her to the emergency room. Prior similar symptoms: Yes Recent Illness/Hospitalization: No PFSH PFSH Medical History no medical history Home Medications ?Medication ?Instructions ?Recorded ?Last Taken ?Type naproxen 500 mg tablet 500 mg PO BID PRN #20 tabs 09/16/19 Unknown Rx cephalexin 500 mg capsule 500 mg PO Q6 #28 CAPSULES 07/29/25 Unknown Rx Allergy/AdvReac Type Severity Reaction Status Date / Time No Known Allergies Allergy Verified 07/29/25 19:15 Social History Smoking Status: Former smoker ROS ROS ED Constitutional Constitutional ED: Reports sweats; Denies chills, fever(s), subjective or weight loss Eyes Eyes: Denies blurry vision, change in vision or diplopia ENT ENT ED: Denies ear pain, rhinorrhea or sore throat Cardiovascular Cardiovascular: Reports palpitations and racing heartbeat; Denies chest pain, orthopnea or paroxysmal nocturnal dyspnea Respiratory/Chest Respiratory/Chest: Reports cough and dyspnea; Denies dyspnea on exertion, orthopnea, paroxysmal nocturnal dyspnea or sputum Gastrointestinal Gastrointestinal: Reports abdominal pain; Denies constipation, diarrhea, melena, nausea or vomiting Genitourinary Genitourinary ED: Denies dysuria or urinary frequency Musculoskeletal Musculoskeletal: Denies arthralgias, back pain or myalgias Integumentary Reports rash and other Details: Rash dorsum of left foot for months. ; Denies abscess or Abrasions Neurologic Neurologic: Reports headache(s); Denies paresthesias or weakness Psychiatric Psychiatric: Reports anxiety; Denies suicidal ideation Endocrine Endocrinology: Denies cold intolerance or heat intolerance Hematologic/Lymphatic Hematologic/Lymphatic: Denies easy bleeding or easy bruising EXAM Physical Exam Const Vital Signs: 07/29/25 19:13 07/29/25 20:12 07/29/25 20:27 Temperature 98.4 F Temperature Source Temporal Pulse Rate 102 H 86 87 Respiratory Rate 18 16 17 Blood Pressure 164/101 H 145/97 H 145/97 H Blood Pressure Mean 122 113 113 Pulse Ox 98 99 97 Oxygen Delivery Method Room Air Room Air Room Air 07/29/25 21:00 07/29/25 22:00 07/29/25 23:00 Temperature Temperature Source Pulse Rate 94 83 88 Respiratory Rate 15 14 16 Blood Pressure 143/83 H 121/98 H 120/65 Blood Pressure Mean 103 105 83 Pulse Ox 96 Oxygen Delivery Method Room Air Positive well nourished and well developed Constitutional Narrative: BMI is 49.6. Patient appears anxious. She is tachycardic. She has sympathomimetic toxidrome. General Appearance ED: well developed; Negative for pallor HEENT Reports dry mucous membranes HEENT Narrative: Head is atraumatic and normocephalic. Ears normal. Nares patent. Posterior pharynx is normal Mouth ED: Yes dry mucous membranes Mouth: dry mucous membranes Eyes PERRL and EOMs intact bilaterally General Eye ED: Negative for pale conjunctiva or scleral icterus Neck no lymphadenopathy, supple and no JVD Lymph Lymphatic: no lymphadenopathy noted and lymphadenopathy Chest Wall inspection of chest normal and palpation of chest normal Resp normal respiratory effort and clear to auscultation bilaterally Cardio regular rhythm, S1 normal heart sound, S2 normal heart sound and no murmurs Rate: tachycardic GI soft to palpation, non-distended and no masses; Negative for non-tender GI Narrative: Patient complains of generalized tenderness. There is no guarding or rebound tenderness. Exam is limited due to her body habitus. Back/Spine no CVA tenderness Extremity General Extremety ED: Negative for edema or tenderness General Extremity: Negative for edema Neuro oriented x3 and CN's II-XII intact bilaterally Neuro Narrative: Speech is pressured. Sensorium / Orientation: alert Gait (Neuro): normal gait Motor Exam: strength 5/5 throughout Psych Attitude: agitated Skin General Skin Exam: Negative for jaundice or pallor Rashes: no rashes MDM MDM MDM Narrative Medical decision making narrative: Patient with sympathomimetic toxidrome. Patient was treated with Ativan for her hyperactivity. Labs were obtained to rule out , leukocytosis, renal disease, electrolyte abnormality i.e. metabolic or infectious cause of her symptoms. Lab Data Attestation: I reviewed the patient's lab results. Lab results narrative: CBC is normal. Comprehensive metabolic panel is normal except for elevated glucose of 146. She does not have history of diabetes. Serum test negative. Urinalysis is positive for ketones, protein, nitrites and leukoesterase. Microscopic reveals 0 RBCs with 10-25 WBCs and 2+ oxalate crystals and 4+ bacteria. Talk screen is positive for amphetamines and cocaine which is what patient states she is using. Labs: Laboratory Results - last 24 hr 07/29/25 07/29/25 19:25 20:20 WBC 6.7 RBC 4.19 L Hgb 12.5 Hct 37.6 MCV 89.7 MCH 29.8 MCHC 33.2 RDW Std Deviation 42.9 RDW Coeff of Chris 13.1 Plt Count 230 MPV 10.1 Immature Gran % (Auto) 0.300 Neut % (Auto) 58.3 Lymph % (Auto) 30.8 [place] % (Auto) 6.9 Eos % (Auto) 3.3 Baso % (Auto) 0.4 Absolute Neuts (auto) 3.9 Absolute Lymphs (auto) 2.06 Nucleated RBC % 0 Sodium 140 Potassium 3.4 Chloride 105 Carbon Dioxide 23.3 Anion Gap 12 BUN 8 Creatinine 0.88 Estim Creat Clear Calc 118.05 Est GFR (MDRD) Non-Af 90 BUN/Creatinine Ratio 9.5 L Glucose 146 H Calcium 9.3 Total Bilirubin 0.42 AST 16 ALT 15 Alkaline Phosphatase 41 Total Protein 6.8 Albumin 4.3 Globulin 2.6 Albumin/Globulin Ratio 1.7 Serum , Qual NEGATIVE Urine Color Yellow Urine Clarity Cloudy Urine pH 8.0 Ur Specific [place] 1.015 Urine Protein 30 H Urine Glucose (UA) Normal Urine Ketones 5 H Urine Occult Blood Negative Urine Nitrite Positive H Urine Bilirubin Negative Urine Urobilinogen Normal Ur Leukocyte Esterase 500 H Urine RBC 0 SEEN Urine WBC 10-25 SEEN Ur Squamous Epith Cells 0 SEEN Calcium Oxalate Crystal 2+ Amorphous Sediment 3+ Urine Bacteria 4+ Urine Mucus 0 SEEN Urine Opiates Screen NEGATIVE U Buprenorphine Qual NEGATIVE Ur Oxycodone Screen NEGATIVE Urine Methadone Screen NEGATIVE Urine Fentanyl Screen NEGATIVE Ur Barbiturates Screen NEGATIVE Ur Phencyclidine Scrn NEGATIVE Ur Amphetamines Screen PRESUMPTIVE POSITIVE U Benzodiazepines Scrn NEGATIVE Urine Cocaine Screen PRESUMPTIVE POSITIVE U Cannabinoids Screen NEGATIVE EKG Initial EKG: Attestation: I personally reviewed and interpreted this EKG as follows: Interpretation: Sinus Rhythm (Rate is 86. EKG is normal. LA was 108 ms. QRS duration 78 ms. QT duration 260 ms. Kincaid is normal.) Treatment and Re-Evaluation Narrative: Attempted to inform patient of results. She would essentially fall asleep after I restarted the same sentence 3 times. Suspect this is due to the Ativan. Will speak to her in 30 minutes. Went to reevaluate patient at 1039. She still was somnolent. Went to evaluate patient at 2316. She is still somnolent and not able to comprehend what I am telling her. Will have her discharge when she awakens. Discharge Plan Triage Chief Complaint: Substance Abuse ED Provider: Douglas Marquez Dx/Rx/DC Orders Clinical Impression: Urinary tract infection, Cocaine use disorder, moderate, dependence, Methamphetamine use, Amenorrhea, History of depression Instructions: Urinary Tract Infections in Women, Meth Abuse Addiction, ED Cocaine And Crack Abuse Prescriptions: New cephalexin 500 mg capsule 500 mg PO Q6 Qty: 28 0RF No Action naproxen 500 MG tablet 500 mg PO BID PRN Qty: 20 0RF Primary Care Provider: Care Physician,No Primary Referrals: Care Physician,No Primary [Primary Care Provider, Medical] [facility] [Non-Staff, None] - As soon as possible Activity Restrictions/Additional Instructions: Recommend contacting 180 since there is no inpatient detox program gram for cocaine/crack use or methamphetamine. Print Language: Amharic Disposition Disposition: Home, Self Care
[2025-07-29 20:12] VITALS: BP 145/97; PULSE 86; RESP 16; O2SAT 99
[2025-07-29 20:27] VITALS: BP 145/97; PULSE 87; RESP 17; O2SAT 97
[2025-07-29 20:39] LABS: Color, Urine Yellow (Yellow); Glucose, Dipstick Normal (Normal); Ketone-Dipstick 5 mg/dl (Negative); Leukocyte Esterase-Dipstick 500 /ul (Negative); Mucous, Urine 0 SEEN /hpf (<or=2+); Nitrite-Dipstick Positive (Negative); Occult Blood-Urine Negative /ul (Negative); Protein-Dipstick 30 mg/dl (Negative); Red Blood Cells-Urine 0 SEEN /hpf (0-5); Specific Gravity, Urine 1.015 (1.002-1.030); Squamous Epithelial Cells - UA 0 SEEN /hpf (5-10); Urine Bilirubin Dipstick Negative (Negative)
[2025-07-29 20:42] LABS: Hematocrit 37.6 % (37-47); Hemoglobin 12.5 g/dL (12.0-15.0); Immature Granulocytes Count 0.020 X10^3/uL (0.0-0.0); Mean Corp Hgb Conc 33.2 g/dL (32-36); Mean Corpuscular Volume 89.7 fL (81-99); Mean Platelet Vol. 10.1 fl (6.2-12.0); NRBC Flagged by Analyzer 0 % (0-5); Platelet Count 230 K/mm3 (150-450); RBC Distribution Width CV 13.1 % (11.6-14.6); RBC Distribution Width SD 42.9 fl (35.1-43.9); Red Blood Count 4.19 M/mm3 (4.2-5.4); White Blood Count 6.7 K/mm3 (4.4-11.0)
[2025-07-29 20:45] LABS: Internal QC Validated? YES +Cl - CLEAR BKGD; Pregnancy, Serum, hCG Quali. NEGATIVE Negative; Record Kit Lot#, Serum Preg. 0000980607
[2025-07-29 20:45] LABS: Barbiturate Urine NEGATIVE (< 200 ng/mL); Benzodiazepine Urine NEGATIVE (< 200 ng/mL); PCP Urine NEGATIVE (< 25 ng/mL); THC Urine NEGATIVE (< 50 ng/mL)
[2025-07-29 20:57] LABS: AST(SGOT) 16 U/L (<=31); Alanine Aminotransfer ALT/SGPT 15 U/L (<=34); Albumin, Serum 4.3 g/dL (3.5-5.0); Alkaline Phosphatase 41 U/L (35-104); Anion Gap 12 (5-15); BUN 8 mg/dL (4-19); BUN/Creat Ratio 9.5 RATIO (10-20); Calcium,Total 9.3 mg/dL (7.6-11.0); Carbon Dioxide 23.3 mmol/L (21.0-32.0); Chloride 105 mmol/L (98-108); Estimated Creatinine Clearance 118.05 ml/min (50-250); Globulin 2.6 g/dL (2.2-4.2); Glucose 146 mg/dL (70-99); Potassium 3.4 mmol/L (3.3-5.1)
[2025-07-29 21:00] VITALS: BP 143/83; PULSE 94; RESP 15; O2SAT 96
[2025-07-29 21:04] LABS: Calcium Oxalate Crystals Ur 2+ /hpf (<or=2+)
[2025-07-29 22:00] VITALS: BP 121/98; PULSE 83; RESP 14
[2025-07-29 23:00] VITALS: BP 120/65; PULSE 88; RESP 16
[2025-07-30] VITALS: BP 143/101; PULSE 79; RESP 18; O2SAT 97
[2025-07-30 00:55] VITALS: BP 144/100; PULSE 82; RESP 18; TEMP 36.4; O2SAT 98
== END 2025-07-30 00:56 | disposition home or self-care (01) ==
PROVIDERS: Emergency Provider Emergency Medicine; Visit Provider Emergency Medicine
DX: F14.20 Cocaine dependence, uncomplicated (principal); N39.0 Urinary tract infection, site not specified; F15.90 Other stimulant use, unspecified, uncomplicated; R06.02 Shortness of breath; R00.2 Palpitations; N91.2 Amenorrhea, unspecified; F32.A Depression, unspecified; Z97.5 Presence of (intrauterine) contraceptive device; Z87.891 Personal history of nicotine dependence
CPT/HCPCS: 80053; 80307; 81001; 84703; 85025; 93005; 96374; 99284; A4216

== ENCOUNTER 2025-10-04 09:14 | Emergency (ER) | payer MEDICAID, SELFPAY ==
[2025-10-04 09:14] VITALS: BP 152/107; PULSE 110; RESP 20; TEMP 35.6; O2SAT 97
--- NOTE | 2025-10-04 09:29 | CT_ITS ---
PROCEDURE: CHEST WITHOUT CONTRAST 10/04/2025 REASON FOR EXAM: LEFT MID RIB PAIN TECHNIQUE: Chest CT without contrast. Coronal and Sagittal reconstruction series were provided. One or more dose reduction techniques were used (e.g., Automated exposure control, adjustment of the mA and/or kV according to patient size, use of iterative reconstruction technique RADIATION DOSE SUMMARY: CTDlvol: 19.74 mGy DLP: 764.50 mGycm COMPARISON: None. FINDINGS: Hardware: None Lymph nodes: No mediastinal axillary or hilar lymphadenopathy Heart and Vasculature: Unremarkable Lungs and Airways: No acute cardiopulmonary process Pleura: No pneumothorax or pleural effusion Upper Abdomen: Unremarkable Bones: There is an acute fracture of the left anterior lateral 6 rib, not significantly displaced. There is a small amount of soft tissue swelling in the subpleural soft tissues with a small amount of gas. There is no overt pneumothorax. CT/Chest without Contrast IMPRESSION: Acute nondisplaced buckle type fracture of the anterior lateral left 6th rib wi th small amount of subpleural gas without overt pneumothorax. Reading Location: [id number]
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
--- NOTE | 2025-10-04 11:55 | ED.RN ---
pt refusing to change into clothes. explained hospital policy. pt adamently refusing and stating she will not be taking off her god damn clothes. Later accused this RN of saying I told her to take off her GD clothes. This RN did not swear at patient and was witness by elen. Police and social work and cupola charger insulation with patient.
--- NOTE | 2025-10-04 12:56 | CM.ED ---
Social work This SW approached by horticultural manager Alyssa and FACUNDO Sabillon stating patient's unwillingness to follow behavioral health clothing policy. SW entered patient's room and sat with patient as patient stated feeling dehumanized and made to feel like less of a human by nursing when asked to immediately remove clothing, per [facility] policy. SW actively listened and validated patient's feelings. SW stated reasoning for policies and validated patient's fears. SW reminded patient of options provided by nursing already and patient stated this is why people don't come and get help with mental health. Patient called patient's [place] [facility] case management coordinator, Miriam (ph: [phone]) and told Miriam that patient would be going to an inpatient facility to get treatment. Patient asked Miriam if patient could get picked up from wherever patient was going and Miriam stated likely being able to do so, but needing to check with Miriam's winding department supervisor first. SW or patient to let Miriam know where patient was going. Patient stated Miriam was going to help patient get into [facility] after this inpatient placement because patient would not be returning to patient's mother's apartment. At this point, patient became adamant again that patient would not be changing and demanded to see the policy. SW asked horticultural manager Alyssa for the paperwork which horticultural manager Alyssa brought in. Patient became irate and stated that nowhere in [facility]'s policy did it say patient needed to change immediately. SW attempted helping further and patient stated not changing if patient was going to sit in the ED for hours. Patient asked where patient would be going. SW stated not knowing yet as SW had not called placements due to not having paperwork typed yet. Patient asked why not; SW stated it was due to trying to help patient with feeling comfortable with this step of the process. Patient continued to cycle back toward statements already made multiple times, so SW stated needing to leave to go finish typing paperwork to send. SW exited patient's room and updated Security and FACUNDO Smith who were outside patient's room. Dunia Plaza, PHYSICS TEACHER, STRIP CLEANER
[2025-10-04 13:23] LABS: Hematocrit 41.7 % (37-47); Hemoglobin 13.6 g/dL (12.0-15.0); Immature Granulocytes Count 0.030 X10^3/uL (0.0-0.0); Mean Corp Hgb Conc 32.6 g/dL (32-36); Mean Corpuscular Volume 90.8 fL (81-99); Mean Platelet Vol. 9.9 fl (6.2-12.0); NRBC Flagged by Analyzer 0 % (0-5); Platelet Count 295 K/mm3 (150-450); RBC Distribution Width CV 12.7 % (11.6-14.6); RBC Distribution Width SD 41.9 fl (35.1-43.9); Red Blood Count 4.59 M/mm3 (4.2-5.4); White Blood Count 8.5 K/mm3 (4.4-11.0)
[2025-10-04 13:34] LABS: Internal QC Validated? YES +Cl - CLEAR BKGD; Pregnancy, Serum, hCG Quali. NEGATIVE Negative
[2025-10-04 13:42] LABS: AST(SGOT) 12 U/L (<=31); Alanine Aminotransfer ALT/SGPT 14 U/L (<=34); Albumin, Serum 4.3 g/dL (3.5-5.0); Alcohol, Blood (Medical)-Serum < 10.1 mg/dL (<=10.0); Alkaline Phosphatase 46 U/L (35-104); Anion Gap 10 (5-15); BUN 16 mg/dL (4-19); BUN/Creat Ratio 18.7 RATIO (10-20); Calcium,Total 9.7 mg/dL (7.6-11.0); Carbon Dioxide 24.8 mmol/L (21.0-32.0); Chloride 103 mmol/L (98-108); Globulin 3.5 g/dL (2.2-4.2); Glucose 126 mg/dL (70-99); Potassium 3.9 mmol/L (3.3-5.1)
--- NOTE | 2025-10-04 13:49 | ED.RN ---
1300 roughly- This RN was called in to assist in patient room. Per primary RN and sitter, patient is refusing to take off her pants and shapewear. Pt is screaming at the primary RN that she is being rude due to asking the patient to get fully changed. This RN is in the room with the SW. The ER Mental Health Procedure paperwork is given to the patient for reference to the policy of removing clothing. Pt is offered paper scrub pants and additional blankets which is declined multiple times. SW leaves the room stating that she is going to work on her paperwork. The patient continues to argue that the mental health procedure paperwork does not state at which time her clothing needs removed so she can do it when she wants. It is explained to her that as soon as the mental health protocol was initiated we follow all procedures immediately. Pt then yells at this RN to hurry the fuck up referring to getting her lab and urine testing done for medical clearance. Pt asked to walk next door to the bathroom to get a urine test. She proceeds to spend the next approx. 15-20 minutes making phone calls after telling this RN to hurry the fuck up. After her last phone call she states that she's not doing our tests. It is explained to her that we were trying to accommodate her crisis by letting her keep her phone to keep in touch with family but it will be confiscated as per our mental health policy if she continues to choose not to finish the requirements for the medical clearance and getting changed. Pt yells at this RN again and goes to the bathroom next door where she is given a cup for the sample. She completes the sample and throws her clothes out of the bathroom to hospital staff. This RN informs the patient that we have supplies to complete the blood work. The patient again makes phone calls. She proceeds to look at this RN and states What are you waiting for. This RN explains that blood work will be completed when she is off the phone. Pt continues on phone for approx 10 more minutes. During that time she tells the male caller multiple times They are fucking pissing me off. The phone call ends and blood work is obtained by this RN.
[2025-10-04 13:56] LABS: Barbiturate Urine NEGATIVE (< 200 ng/mL); Benzodiazepine Urine NEGATIVE (< 200 ng/mL); PCP Urine NEGATIVE (< 25 ng/mL); THC Urine NEGATIVE (< 50 ng/mL)
--- NOTE | 2025-10-04 14:55 | CM.ED ---
Social work 1355: called [facility] (ph: ) and beds available. Referral faxed (f: ). [facility] returned call at [address] information[address] Janny Mccracken Unit [facility]: , option 3 [place] slip faxed at [phone]. brand executive, Doctor, and patient all updated. 1430: MARINA asked patient if patient wanted to call Miriam, patient's case folder or not. Patient gave permission for MARINA to call; CHANDA signed. While signing CHANDA, patient mentioned being on probation, well, harley and needing to sign one for patient's chief school finance officer as well. MARINA called Miriam (ph: [phone]) and provided disposition information. Miriam stated letting patient's chief school finance officer know already and requested patient sign an CHANDA at [facility] in order for Miriam to speak with them regarding discharge planning. MARINA let patient know Miriam's request. Plan: [facility], pending transport. Dunia Plaza, CHIROPRACTIC NEUROLOGIST, RETAIL SECURITY PROFESSIONAL
[2025-10-04 15:01] VITALS: BP 151/98; PULSE 100; RESP 18; TEMP 36.8; O2SAT 95
== END 2025-10-04 15:19 ==
PROVIDERS: Emergency Provider Emergency Medicine; Visit Provider Emergency Medicine
DX: S22.32XA Fracture of one rib, left side, initial encounter for closed fracture (principal); X79.XXXA Intentional self-harm by blunt object, initial encounter; R45.851 Suicidal ideations; Z87.891 Personal history of nicotine dependence; F32.A Depression, unspecified; R07.9 Chest pain, unspecified; S00.83XA Contusion of other part of head, initial encounter
CPT/HCPCS: 71250; 80053; 80307; 82077; 84703; 85025; 99285; A4216